=== PATIENT | male | born 1960 | race Caucasian/White ===

== ENCOUNTER 2016-08-28 11:00 | Observation (INO) | payer BC ==
[~2016-08-28] VITALS: Ht 177.8 cm; Wt 83.1 kg
--- NOTE | ~2016-08-28 | CATH ---
Cardiac Diagnostic Report Demographics Patient Name LAURA Ferreira Gender Male Date of 1960 Age 56 year(s) Patient Number [id number] Date of Study 08/29/2016 Visit Number [id number] Room Number G6[address] [place] [id number] Ht 177.8 cm Wt 83 kg Referring Sarah Anand Primary Physician Physician MEI Camachotratheron Goddard MD Performing Efstratiou Secondary Physician Physician Chasity Goddard MD Diagnostic Efstratigabi Assisting Physician Physician Chasity Goddard MD Interventional Physician Pan Cleaner Physician Findings and Conclusions Diagnostic Findings and Conclusion Moderate diffuse coronary artery disease Decreased cardiac index Moderately Elevated wedge pressure Non-ischemic cardiomyopathy Diagnostic Recommendations Medical treatment Lifevest to be followed by BiV ICD Procedure Description The patient was brought to the diagnostic cardiac catheterization-EP laboratory in the fasting, non-sedated state. Informed consent was obtained in the written and verbal form after the risks and benefits were explained. The patient had no further questions and agreed to proceed. The planned puncture-incision site(s) were shaved and prepped with ChloraPrep and draped in the usual sterile manner. Conscious sedation, supplemental oxygen, and pain control medications were delivered by a registered nurse under physician guidance. Surface ECG rhythm, blood pressure measurement, and pulse oximetry were monitored throughout the procedure. Arterial access. The access site was infiltrated with lidocaine. The vessel was entered with the Seldinger technique. A sheath was advanced into the vessel and used for catheter placement. Venous access. The access site was infiltrated with 1% lidocaine. The vessel was entered with the Seldinger technique. A sheath was advanced into the vessel and used for catheter placement. Right heart catheterization. A [place] Sonido catheter was successfully advanced to the right atrium, right ventricle, pulmonary artery, and pulmonary artery wedge position under fluoroscopic guidance. Resting hemodynamics were obtained. Measurements included pressures, arterial and venous oxygen saturation samples, and cardiac output. The [place] was removed without difficulty. Selective left coronary angiography. A catheter was advanced into the left coronary vessel ostium under Fluoroscopic guidance. Contrast was injected by hand. Images were obtained in multiple projections. Selective right coronary angiography. A catheter was advanced into the right coronary vessel ostium under fluoroscopic guidance. Contrast was injected by hand. Images were obtained in multiple projections. Left heart catheterization. A catheter was advanced across the aortic valve to the left ventricle under fluoroscopic guidance. Resting hemodynamics were obtained. Arterial and Venous hemostasis was achieved. The patient was transferred to a regular nursing floor via cart accompanied by a nurse. The patient left the laboratory in stable condition. Diagnostic Cath Status: Urgent Procedure Procedure Type Diagnostic procedure:Angiography:, Right and Left Heart Cath, Coronary Angios Indications: Shortness of breath and Heart Failure. The procedure was explained in detail to the patient. Risks, complications and alternative treatments were reviewed. Written consent was obtained. Medications Reviewed with Patient prior to Procedure. Angiographic Findings Dominance: Right Cardiac Arteries and Lesion Findings LMCA: Normal (0% Stenosis). LAD: Abnormal.25% prox LCx: Abnormal.30% Lesion on Mid CX: 30% stenosis . Lesion on 1st Ob Chloe% stenosis . RCA: Abnormal.80% prox, 30% mid, 30% distal PDA 30% ostial Lesion on Prox RCA: 40% stenosis . Lesion on Mid RCA: 30% stenosis . Lesion on Dist RCA: 30% stenosis . Coronary Tree Procedure Data Procedure Date Date: 08/29/2016Start: 09:46 AM Entry Locations - Retrograde Percutaneous access was performed through the Right Radial artery (Primary location). A 6 Fr sheath was inserted. - Antegrade Percutaneous access was performed through the Right Brachial vein. A 6 Fr sheath was inserted. Procedure Medications Order and Administration + + + + + !Time !Medication !Dosage !Route ! + + + + + !08/29/2016 09:37 AM !Oxygen !2 l/min !NC ! + + + + + !08/29/2016 09:51 AM !Radial Heparin (ACC_3) !2500 units !I.A. ! + + + + + !08/29/2016 09:51 AM !Radial Nitroglycerin !100 mcg !I.A. ! + + + + + !08/29/2016 09:52 AM !Radial Verapamil !3 mg ! ! + + + + + !08/29/2016 09:59 AM !0.9% NaCl !200 ml !I.V. bolus ! + + + + + Devices Used - A6 Fr. Balloon Wedge Catheterwas used for:Right heart cath. - A6 Fr. BS JR 4 Diag. Catheterwas used for:Right coronary angiography. - A6 Fr. BS JL 3.5 Diag. Catheterwas used for:Left coronary angiography. Contrast Material - Isovue 84577 ml Fluoroscopy Time: Diagnostic: 4:24 minutes. Total: 4:24 minutes. Fluoroscopy Dose: Diagnostic: 877 mGy. Total: 877 mGy. Estimated Blood Loss: 5 ml. Medical History Allergies - No known allergies. Risk Factors The patient risk factors include:last creatinine: 1.1 mg/dl, creatinine clearance: 89.08 ml/min and Current/Recent(w/in 1 year) tobacco use. Admission Data Admission Date: 08/28/2016 Admission Time: 01:46 PM Admit Source: [facility] Insurance Payors: Private health insurance. Admission Medications + +------+------+ + + + + !Medication !Dosage!Times !Last !Last !Administered !Comments ! ! ! !Per !Delivery !Delivery ! ! ! ! ! !Day !Date !Time ! ! ! + +------+------+ + + + + !Aspirin ! ! !08/29/2016 !12:00 AM !Yes ! ! !(any) ! ! ! ! ! ! ! + +------+------+ + + + + !Statin ! ! !08/29/2016 !12:00 AM !Yes ! ! !(any) ! ! ! ! ! ! ! + +------+------+ + + + + !Beta ! ! !08/28/2016 !12:00 AM !Yes ! ! !Orlin ! ! ! ! ! ! ! !(any) ! ! ! ! ! ! ! + +------+------+ + + + + Clinical Evaluation Leading to Procedure Diagnosed on 08/29/2016 12:00 AM. - The patient has been in a state of heart failure within the past two weeks. - The patient's heart failure status was assessed as NYHA Class IV. Snapshots Hemodynamics Condition: Rest O2 Consumption: Estimated: 240.31Heart Rate: 73 bpm Oxygen Saturation +--------+-----+----+ +----+ + !Location!pCO2 !pO2 !% Saturation !Hgb !O2 Content ! +--------+-----+----+ +----+ + !PA ! ! !56.8 !14.4! ! +--------+-----+----+ +----+ + !AO ! ! !93.3 !14.4! ! +--------+-----+----+ +----+ + !RA ! ! !55.1 !14.4! ! +--------+-----+----+ +----+ + Pressures (mmHg) +-----+ + !Site !Pressure ! +-----+ + !RA !16/15 (13) ! +-----+ + !PA !40/17 (24) ! +-----+ + !RV !36/7 ,16 ! +-----+ + !PCW !/ (24) ! +-----+ + !PA !36/ (26) ! +-----+ + !LV !98/8 ,21 ! +-----+ + !LV !79/10 ,19 ! +-----+ + !LV !79/10 ,19 ! +-----+ + !AO !76/55 (65) ! +-----+ + !LV !80/10 ,20 ! +-----+ + !AO !84/56 (67) ! +-----+ + Cardiac Output +------+ + + + !Method!CO (l/min) !CI (l/min/m2) !SV (ml) ! +------+ + + + !Sylvester !3.36 !1.7 !46.18 ! +------+ + + + Valve Gradients and Areas + +--------+--------+--------+---------+ + + !Valve !Peak !Mean !Area !Index !Flow !Source ! + +--------+--------+--------+---------+ + + !Aortic !3 !0 ! ! !196.95 !Sylvester ! + +--------+--------+--------+---------+ + + !Aortic !3 !0 ! ! ! ! ! + +--------+--------+--------+---------+ + + Shunts Oxygen Values O2 Capacity 195.84 O2 Consumption 240.31 Flows (l/min) Qs 3.21 Qe/Qp 0.96 Qp 3.36 Qp/Qs 1.05 Qe 3.21 Vascular Resistance (dynes x sec x cm-5) + +-----+-----+----+----+---------+-------+ !CO method !TSVR !SVR !TPVR!PVR !TPVR/TSVR!PVR/SVR! + +-----+-----+----+----+---------+-------+ !Sylvester !20.07!16.27!7.83!0.59!0.39 !0.04 ! + +-----+-----+----+----+---------+-------+ !Qp or Qs !21.01!17.03!7.83!0.59!0.37 !0.03 ! + +-----+-----+----+----+---------+-------+ Signatures dtt: Akiko Rodriguez dtd: 08/29/16 0946 Physician Self Edit
--- NOTE | ~2016-08-28 | DS ---
PATIENT'S NAME: AJAY SANCHEZ [facility] AGE: 56 Y [address] ROOM: [address] [address] LOCATION: GPCU ADMIT DATE: 08/28/2016 Discharge Summary DISCHARGE DATE: 08/30/2016 FAMILY PHYSICIAN: Kika Smith NP ATTENDING PHYSICIAN: Akiko Rodriguez PRIMARY DISCHARGE DIAGNOSIS: Severe dilated nonischemic cardiomyopathy. SECONDARY DISCHARGE DIAGNOSES: 1. Hypotension due to medications. 2. Ejection fraction 10%. 3. Acute systolic congestive heart failure, [place] Heart Association Class IV. 4. Coronary artery disease. PROCEDURES: Selective coronary angiography without intervention as well as left and right heart catheterization. HOSPITAL COURSE: This is a 56-year-old male, who was transferred from [place], [place] with a newly diagnosed decreased ejection fraction. Please see history and physical for full details of admission. The patient underwent a selective coronary angiography as well as left and right heart catheterization without percutaneous intervention through his right radial artery. That procedure found moderate diffuse coronary artery disease, decreased cardiac index, moderately increased wedge pressure, as well as nonischemic cardiomyopathy with no need for coronary intervention. The patient was subsequently transferred postprocedure to the progressive care unit for continued monitoring of his procedure site as well as continued observation post procedure vital signs and EKG. Plan was made at that time to discharge the patient after recovery with a LifeVest in place as well as guideline- directed medical therapy and the possibility of a biventricular ICD implantation in the future. On 08/30/2016, the patient's catheterization site was found to be stable with no complications noted. He was discharged with a LifeVest in place. DIAGNOSTICS: The patient's renal function both pre and post heart catheterization were within normal limits. He had a set of cardiac enzymes, which showed a CPK of 64, CK-MB of 0.8, and troponin I of less than 0.04. Lipid evaluation showed a total cholesterol of 195, triglycerides 109, HDL of 72, and an LDL of 102. DISCHARGE ORDERS: The patient is discharged to home with a cardiac diet of low fat, low salt, and low cholesterol. He has a 10-pound lifting restriction to his right arm for 1 week. He is to follow up with his primary care provider, Kika Smith APRN in 1 week and then follow up with . PATIENT'S NAME: AJAY SANCHEZ [facility] AGE: 56 Y [address] ROOM: G6[address] [place], [place] [address] [facility] ADMIT DATE: 08/28/2016 Discharge Summary DISCHARGE DATE: 08/30/2016 FAMILY PHYSICIAN: Kika Smith NP ATTENDING PHYSICIAN: Akiko Rodriguez in 2 weeks. He is to start outpatient cardiac rehab as well as he will not be allowed to drive for 3 months. DISCHARGE MEDICATIONS: 1. Albuterol sulfate 2 puffs inhaled every 4 hours as needed for wheezing. 2. Tylenol 650 mg p.o. every 4 hours as needed for pain. 3. Aspirin 81 mg p.o. daily. 4. Lipitor 40 mg p.o. daily. 5. Coreg 25 mg p.o. twice daily. 6. Eplerenone 25 mg p.o. daily. 7. Nicotine patch 21 mg transdermally daily. 8. Entresto 24/26 mg p.o. twice daily. DISPOSITION: The patient is discharged to home in stable condition with education about his followup appointments, new medications, as well as new prescription, post catheterization instructions and restrictions and LifeVest teaching. KEERTHI AMOR APRN FOR MD YVETTE ROSSI/ayala /[id number] d: [id number] t: 09/09/16 0839, DISCHARGE SUMMARY
[2016-08-28] MEDS ORDERED: PROAIR HFA8.5 GM INH (14:09)
[2016-08-28] MEDS ORDERED: REVATIO 20 MG T20 MG PO (14:11)
[2016-08-28] MEDS ORDERED: MOBIC15 MG PO (14:12)
[2016-08-28] MEDS ORDERED: TYLENOL325 MG PO (14:13)
[2016-08-28] MEDS ORDERED: ADVIL200 MG PO (14:14)
[2016-08-28 16:44] LABS: BASOPHIL # 0.1 K/uL (0.0-0.2); BASOPHIL % 0.8 %; EOSINOPHIL # 0.2 K/uL (0.0-0.5); EOSINOPHIL % 1.9 %; HEMATOCRIT 41.2 % (37.0-53.0); HEMOGLOBIN 14.4 g/dL (12.0-17.0); IMMATURE GRANULOCYTE % 0.2 %; LYMPHOCYTE # 1.5 K/uL (0.8-4.0); LYMPHOCYTE % 16.7 %; MCH 32.3 pg (27.0-34.0); MCV 92.4 fl (83.0-98.0); MONOCYTE # 0.9 K/uL (0.0-1.0); MONOCYTE % 10.6 %; MPV 10.2 fl (9.4-12.4); NEUTROPHIL # (ANC) 6.1 K/uL (1.4-9.0); NEUTROPHIL % 69.8 %; NRBC % 0 /100WBC (0-0.00); PLATELET COUNT 281 K/uL (150-450); RBC 4.46 M/uL (4.00-6.00); RDW-CV 14.6 % (11.9-14.6); WBC 8.7 K/uL (4.0-11.0)
[2016-08-28 16:54] LABS: INR - (THERAPEUTIC) 1.02 (0.92-1.07); PROTIME 10.7 SECONDS (9.8-11.4)
[2016-08-28 17:06] LABS: ALBUMIN 3.6 gm/dL (3.5-5.0); ALK PHOS 52 IU/L (33-138); ALT 25 IU/L (12-78); ANION GAP 10.2 (10.0-19.0); AST 19 IU/L (10-40); BLOOD UREA NITROGEN 19 mg/dL (6-24); CHLORIDE 111 mMol/L (96-110); CO2 24 mMol/L (22-32); CREATININE 1.1 mg/dL (0.6-1.3); ESTIMATED GFR (MDRD EQUATION) > 60; POTASSIUM 4.2 mMol/L (3.7-5.1); SODIUM 141 mMol/L (135-145); TOTAL BILIRUBIN 0.6 mg/dL (0.0-1.5); TOTAL PROTEIN 6.7 g/dL (6.0-8.4)
[2016-08-29 08:50] LABS: CPK 64 IU/L (35-332)
[2016-08-30 04:43] LABS: ANION GAP 11.2 (10.0-19.0); BLOOD UREA NITROGEN 13 mg/dL (6-24); CALCIUM 8.8 mg/dL (8.5-10.5); CHLORIDE 112 mMol/L (96-110); CO2 21 mMol/L (22-32); ESTIMATED GFR (MDRD EQUATION) > 60; POTASSIUM 4.2 mMol/L (3.7-5.1); SODIUM 140 mMol/L (135-145)
[2016-08-30] MEDS ORDERED: ASPIRIN EC81 MG PO (11:16)
[2016-08-30] MEDS ORDERED: LIPITOR40 MG PO (11:19)
[2016-08-30] MEDS ORDERED: COREG25 MG PO (11:21)
[2016-08-30] MEDS ORDERED: INSPRA25 MG PO (11:22)
[2016-08-30] MEDS ORDERED: NICODERM / HABIT7 MG TOP (11:27)
[2016-08-30] MEDS ORDERED: ENTRESTO 24 MG1 EACH PO (11:28)
== END 2016-08-30 20:12 | disposition disaster alternative care site (69) ==
LOC: EDSTATUS 11:00 → GPCU 13:46
PROVIDERS: Nurse Practitioner; ADMIT Internal Medicine Cardiovascular Disease
DX: I25.10 Atherosclerotic heart disease of native coronary artery without angina pectoris (principal); I42.9 Cardiomyopathy, unspecified; I10 Essential (primary) hypertension; F17.200 Nicotine dependence, unspecified, uncomplicated; Z79.82 Long term (current) use of aspirin; Z79.899 Other long term (current) drug therapy
CPT/HCPCS: C1894; G0378; J1644; J1650; J7030